=== PATIENT | female | born 1945 | race Caucasian/White ===

== ENCOUNTER 2023-06-04 12:13 | Outpatient (AMB) | payer MEDICARE, SELFPAY ==
--- NOTE | 2023-06-04 12:32 | MHC.OFFVIS ---
Intake Vital Signs 06/04/23 12:33 Height 5 ft 9 in Weight 148 lb 12.992 oz BMI 22.0 BP 122/90 H Blood Pressure Location Rt brachial Position Sitting Pulse 85 Pulse Source Pulse Oximeter Temp 97.5 F Temp Source Skin Pulse Oximetry (%) 95 Oxygen Delivery Method Room Air Intake Visit Reasons: SS Intake Note: New patient, externally referred, presents to office today for Sjogren's Formerly seeing Dr. Kearney, and Dr. Hui. Bog Cutter Required: No Accompanied by: Self / Same As Patient Allergies gluten Allergy (Unknown, Verified 06/04/23 12:36) Inflammation wheat Allergy (Unknown, Verified 06/04/23 12:36) Inflammation sulfa antibiotics Allergy (Severe, Uncoded 06/04/23 12:36) Hives eggs Allergy (Unknown, Uncoded 06/04/23 12:36) Inflammation onions Allergy (Unknown, Uncoded 06/04/23 12:36) Unknown peaches Allergy (Unknown, Uncoded 06/04/23 12:36) Unknown pears Allergy (Unknown, Uncoded 06/04/23 12:36) Unknown HPI HPI Comments History of Present Illness Details Ms. 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 She is coming from [place], [place]. She has Sjgogren's (over 20 yrs) and is on Hyroxuchloroquine 300mg QD(16years). She reports she is doing well and is managing the dry eyes with drops. She visits the dentist regularly the quantity of 5 different leg so with whatever is there right I refill because it has 175. She experiences and multiple joint pain when she is off the HCQ for about 1 week. The remaining medications on her medlist are cyanocobalamin and sertraline. 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 Patient endorses Raynaud's, denies calcinosis and sclerodactyly. dry eyes, dry mouth - She has used pilocarpine in the past History of Crohn's --follows with opthalmology --has need dental work [facility] Medical History (Updated 06/17/23 @ 17:06 by Lily Padron, RICK-ESTEFANIA) Raynaud's syndrome Long-term use of hydroxychloroquine Benign essential tremor Hypovitaminosis Sjogrens syndrome Osteoarthritis Esophageal reflux Crohn's disease Benign paroxysmal positional vertigo Meeks esophagus Surgical History Hx of colonoscopy H/O mammogram Social History Household Members: None Alcohol intake: current Alcohol intake frequency: holidays/special occasions only Alcohol type: wine Patient Tobacco Use Status: Former Tobacco user Substance Use Type: Marijuana Female Reproductive History Menstrual Ab spontaneous: 1 Review of Systems Const All systems reviewed & are unremarkable except as noted in HPI and below Physical Exam Vital Signs: Last Vital Signs Temp 97.5 F 06/04/23 12:33 Pulse 85 06/04/23 12:33 BP 122/90 H 06/04/23 12:33 Pulse Ox 95 06/04/23 12:33 Oxygen Delivery Method Room Air 06/04/23 12:33 BMI result Body Mass Index 22.0 Vital signs reviewed. B/P 122/90 WNR for age - patient asymptomatic for cardiovascular concerns. Constitutional: Non-toxic appearing. No acute distress. Well-developed and well-nourished. HEENT: Normocephalic and atraumatic. External auditory canals without erythema or edema bilaterally. Dry oral mucosa. No pharyngeal erythema or exudates. Skin: Warm and dry. No rashes or lesions noted. no bjective sign of Raynaud's, tanlengiactaisis or calcinosis. Neck: Full and painless range of motion. No cervical lymphadenopathy. Cardio: Regular rate and rhythm. No murmurs, gallops, or rubs. No lower extremity edema. No JVD. Pulmonary: No respiratory distress. No accessory muscle usage. Gastrointestinal: Soft, nontender, and nondistended in all 4 quadrants. Normoactive bowel sounds in all 4 quadrants. Genitourinary: No CVA tenderness. Musculoskeletal: Normal range of motion in joints throughout the body. No deformity or other signs of injury. Neuro: Alert and oriented x4. Cranial nerves 2-12 grossly intact. No focal deficits appreciated. 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 Farnsworthr 77-year-old female with Sjogren's for over 15 years. We will continue hydroxychloroquine 300 mg per day. We will obtain Rheum panel for baseline. She will continue to follow- with eye MD and have them send us reports. Patient is aware of the precautions for Raynaud's. I spent 30 minutes reviewing history, evaluating patient and documenting. F/u 6 months Orders: Orders ANCA Vasculitides 06/04/23 M35.00 - Sjogren syndrome, unspecified, K22.70 - Meeks's esophagus without dysplasia Anti DNA DS Antibody 06/04/23 M35.00 - Sjogren syndrome, unspecified, K22.70 - Meeks's esophagus without dysplasia Anti Extractable Nuclear Ag 06/04/23 M35.00 - Sjogren syndrome, unspecified, K22.70 - Meeks's esophagus without dysplasia Complement C4 06/04/23 M35.00 - Sjogren syndrome, unspecified, K22.70 - Meeks's esophagus without dysplasia Immunoglobulins,IgG IgA IgM 06/04/23 M35.00 - Sjogren syndrome, unspecified, K22.70 - Meeks's esophagus without dysplasia Protein Creatinine Ratio, Ur 06/04/23 M35.00 - Sjogren syndrome, unspecified, K22.70 - Meeks's esophagus without dysplasia T Spot TB 06/04/23 M35.00 - Sjogren syndrome, unspecified, K22.70 - Meeks's esophagus without dysplasia Vitamin B12 06/04/23 E56.9 - Vitamin deficiency, unspecified, G25.0 - Essential tremor Erythrocyte Sedimentation Rate 06/04/23 M35.00 - Sjogren syndrome, unspecified, K22.70 - Meeks's esophagus without dysplasia MCKAYLA Reflex Titer and Pattern 06/04/23 M35.00 - Sjogren syndrome, unspecified, K22.70 - Meeks's esophagus without dysplasia Anti-Centromere B Antibodies 06/04/23 M35.00 - Sjogren syndrome, unspecified, K22.70 - Meeks's esophagus without dysplasia Complement C3 06/04/23 M35.00 - Sjogren syndrome, unspecified, K22.70 - Meeks's esophagus without dysplasia Complete Blood Count Auto Diff 06/04/23 M35.00 - Sjogren syndrome, unspecified, K22.70 - Meeks's esophagus without dysplasia Comprehensive Met. Panel 06/04/23 M3.00 - Sjogren syndrome, unspecified, K22.70 - Meeks's esophagus without dysplasia C Reactive Protein 06/04/23 M35.00 - Sjogren syndrome, unspecified, K22.70 - Meeks's esophagus without dysplasia Immunofixation Pnl, Serum 06/04/23 M35.00 - Sjogren syndrome, unspecified, K22.70 - Meeks's esophagus without dysplasia Sjogren's Antibodies 06/04/23 M35.00 - Sjogren syndrome, unspecified, K22.70 - Meeks's esophagus without dysplasia UA w Microscopic 06/04/235. - Sjogren syndrome, unspecified, K22.70 - Meeks's esophagus without dysplasia Protein Electrophoresis, Serum 06/04/235.00 - Sjogren syndrome, unspecified, K22.70 - Meeks's esophagus without dysplasia Medications: New hydroxychloroquine 300 mg (1.5 x 200 mg) PO DAILY 105 tabs 3RF 5.00 - Sjogren syndrome, unspecified Coding Level of Care Code New Pt Level 3 (12083) Diagnoses Sjogren's syndrome with keratoconjunctivitis sicca M35.01 Sjogren organ or system involvement: keratoconjunctivitis Meeks's esophagus without dysplasia K22.70 Meeks's esophagus type: without dysplasia Long-term use of hydroxychloroquine Z79.899 Raynaud's disease without gangrene I73.00 Raynaud?s-associated gangrene presence: without gangrene
[2023-06-04 12:33] VITALS: BP 122/90; PULSE 85; TEMP 36.4; O2SAT 95; BMI 22.0
== END 2023-06-04 13:23 | disposition home or self-care (01) ==
PROVIDERS: PCP Student in an Organized Health Care Education/Training Program; Visit Provider Nurse Practitioner Family
DX: M35.01 Sjogren syndrome with keratoconjunctivitis (principal); K22.70 Barrett's esophagus without dysplasia; Z79.899 Other long term (current) drug therapy; I73.00 Raynaud's syndrome without gangrene
CPT/HCPCS: 99203

== ENCOUNTER → 2023-06-04 12:13 | Outpatient (BNVA) | payer MEDICARE, SELFPAY | PROVIDERS: PCP Student in an Organized Health Care Education/Training Program; Visit Provider Nurse Practitioner Family | DX: M35.01 Sjogren syndrome with keratoconjunctivitis (principal); M54.50 Low back pain, unspecified; M25.569 Pain in unspecified knee; K22.70 Barrett's esophagus without dysplasia; I73.00 Raynaud's syndrome without gangrene; Z79.899 Other long term (current) drug therapy | CPT/HCPCS: 99202 ==

== ENCOUNTER 2024-06-01 12:24 | Outpatient (AMB) | payer MEDICARE, SELFPAY ==
[2024-06-01 12:31] VITALS: BP 134/78; PULSE 63; O2SAT 98; BMI 21.7
--- NOTE | 2024-06-01 12:31 | MHC.OFFVIS ---
Vital Signs 06/01/24 12:31 Height 5 ft 9 in Weight 147 lb BMI 21.7 BP 134/78 Blood Pressure Location Lt brachial Position Sitting Pulse 63 Pulse Source Pulse Oximeter Pulse Oximetry (%) 98 Oxygen Delivery Method Room Air Intake Visit Reasons: Sjogren's and Raynaud's Intake Note: Patient presents for follow up on Sjorgen's and Raynaud's. She was last seen in the office on 06/04/23 by Lily Padron. Allergies gluten Allergy (Unknown, Verified 06/01/24 12:39) Inflammation wheat Allergy (Unknown, Verified 06/01/24 12:39) Inflammation sulfa antibiotics Allergy (Severe, Uncoded 06/01/24 12:39) Hives eggs Allergy (Unknown, Uncoded 06/01/24 12:39) Inflammation onions Allergy (Unknown, Uncoded 06/01/24 12:39) Unknown peaches Allergy (Unknown, Uncoded 06/01/24 12:39) Unknown pears Allergy (Unknown, Uncoded 06/01/24 12:39) Unknown Medication List - Last Reconciled 06/01/24 by Carrie Reyes MD hydroxychloroquine 300 mg (1.5 x 200 mg) PO DAILY mecobalamin (vitamin B12) mcg PO sertraline 25 mg PO DAILY HPI Comments Details: Patient is a 78-year-old female with benign essential tremor, benign paroxysmal positional vertigo, Crohn's disease, GERD complicated by Meeks's esophagus and Sjogren's syndrome here today for follow up Interval History: Patient last seen 06/04/2023 with Lily Padron. At that time she was establishing care in this practice after her previous deliverer food retired. She had no new complaints at that time and she remain on her Plaquenil Since that visit she followed up for her annual eye appointment 04/2024 and was told that she had retina changes and was referred to retinal specialist for further evaluation. Patient states that about a few months ago she notices an increased amount of skin. She proceeded to scrub her leg but the subsequently had inflammation with swelling and pain to the bilateral calves for about a week and now they remain sensitive Otherwise joints have been good on the plaquenil Rheumatologic History: Initial evaluation by Lily Padron: Ms. 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 She is coming from [place], [place]. She has Sjgogren's (over 20 yrs) and is on Hyroxuchloroquine 300mg QD(16years). She reports she is doing well and is managing the dry eyes with drops. She visits the dentist regularly the quantity of 5 different leg so with whatever is there right I refill because it has 175. She experiences and multiple joint pain when she is off the HCQ for about 1 week. The remaining medications on her medlist are cyanocobalamin and sertraline. 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 Patient endorses Raynaud's, denies calcinosis and sclerodactyly. dry eyes, dry mouth - She has used pilocarpine in the past History of Crohn's --follows with opthalmology --has need dental work Current Rheumatology Medication(s): Plaquenil 300 mg daily [facility] Medical History (Updated 06/17/23 @ 17:06 [facility] Raynaud's syndrome Long-term use of hydroxychloroquine Benign essential tremor Hypovitaminosis Sjogrens syndrome Osteoarthritis Esophageal reflux Crohn's disease Benign paroxysmal positional vertigo Meeks esophagus Surgical History Hx of colonoscopy H/O mammogram Social History Household Members: None Alcohol intake: current Alcohol intake frequency: holidays/special occasions only Alcohol type: wine Patient Tobacco Use Status: Former Tobacco user Substance Use Type: Marijuana Review of Systems Const Details: Review of Systems Constitutional: Denies fever, chills, weight loss ENT: Denies vision changes, eye pain or eye redness, dental caries, dry mouth GI: Denies nausea, vomiting, diarrhea, abdominal pain, change in BM Pulm: Denies SOB, AJCKSON, hemoptysis, wheezing Cards: Denies chest pain, palpitations Skin: Denies Raynaud's, rash, nail changes, photosensitivity, RN TRANSFER: Denies headaches, weakness, paresthesias, recurrent falls MSK: as per HPI All other systems reviewed and are unremarkable except noted above Physical Exam Vital Signs: Last Vital Signs Pulse 63 06/01/24 12:31 BP 134/78 06/01/24 12:31 Pulse Ox 98 06/01/24 12:31 Oxygen Delivery Method Room Air 06/01/24 12:31 BMI result Body Mass Index 21.7 Vital signs reviewed Physical Examination CONSTITUITIONAL Patient alert and cooperative. Well appearing and in no apparent painful distress HEENT Conjunctiva and sclera clear. ?Pupils equal round and reactive to light. ?No lymphadenopathy. ? CHEST/RESPIRATORY SYSTEM Normal respiratory effort and able to speak in complete sentences. ?Clear to auscultation bilaterally. ?No crackles, rales, rhonchi, wheezes heard. CARDIAC SYSTEM Regular rate and rhythm. ?S1 and S2 heard no murmurs. ?Radial pulses intact bilaterally MSK Hands: ?Good frickertron checker strength bilaterally. No deformities noted. ?No synovitis noted to the MCPs, PIPs or DIPs. ?No tenderness to palpation of these joints. [place] nodes and squaring of the 1st CMC Wrists: ?Full range of motion at the wrists without pain. ?No tenderness to palpation or synovitis noted to the wrists. Elbows: Full range of motion without pain. No tenderness, weakness, swelling, increased warmth or erythema. Shoulders: Full range of motion without pain. No tenderness, weakness, swelling, increased warmth or erythema. Hips: Full range of motion without pain. Hip bursa: No tenderness to palpation Knees: ?Full range of motion. ?No tenderness, swelling, increased warmth or erythema.?No effusion or crepitations Ankles: Full range of motion. ?No tenderness, swelling, increased warmth or erythema.? Feet: ?Negative squeeze test. ?No tenderness to palpation or swelling of the MTPs. Tender points:?No tenderness to palpation of the bilateral trapezius, supraspinatus, greater trochanters, anterior costochondral junctions, bilateral gluteal areas, bilateral suboccipital muscle insertions SKIN Xerosis cutis noted to bilateral lower legs Results Reviewed Results Reviewed: Labs from 06/2023 reviewed Creatinine 0.67 AST/ALT SPEP nor abnormal protein bands detected Immunofixation normal pattern. No monoclonal proteins detected. Normal immunoglobulins a, G and M Urine protein creatinine ratio 0.143 T spot negative ESR 9 White blood cell count 3.3 Hemoglobin 12.3 Platelets 152 Absolute lymphocytes low C3 107 C4 17 C-reactive protein 0.4 SSA 6.9 (positive) ONCOLOGY RADIATION PHYSICIAN 1.6 (positive) MCKAYLA 1: 1280 DsDNA 1 Anticentromere antibody negative Assessment & Plan Assessment & Plan (1) Sjogrens syndrome: Code(s): M35.00 - Sjogren syndrome, unspecified Category: Medical Qualifiers: Sjogren organ or system involvement: keratoconjunctivitis Qualified Code(s): M35.01 - Sjogren syndrome with keratoconjunctivitis Plan: #Sjogren's syndrome Patient is a 78-year-old female with Sjogren's syndrome complicated by inflammatory arthritis here today for follow up. No other signs or symptoms concerning for extraglandular Sjogren's. Continue Plaquenil however we will reduce the dose given her new findings of retinal changes. 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 Category: Medical Plan: #Long-term Use of Hydroxychloroquine Discussed with patient the risks and benefits of hydroxychloroquine in managing the rheumatic condition Benefits include: - Reduced pain, reduce mortality, maintenance of remission and reduction of flares Risks include: - GI upset, skin hyperpigmentation, retinal toxicity (especially after more than 5 years of use), myopathy Advised yearly ophthalmology visits Plan I spent 42 minutes reviewing the record and labs, taking a history, examining the patient, discussing the treatment plan, ordering diagnostic work up, answering all the patient's questions and documenting in the medical record Orders: Orders Complement C3 Today M35. - Sjogren syndrome with keratoconjunctivitis Complete Blood Count Auto Diff Today M35. - Sjogren syndrome with keratoconjunctivitis Immunofixation Pnl, Serum Today M35. - Sjogren syndrome with keratoconjunctivitis Protein Electrophoresis, Serum Today M35.01 - Sjogren syndrome with keratoconjunctivitis Complement C4 Today - Sjogren syndrome with keratoconjunctivitis Comprehensive Met. Panel Today - Sjogren syndrome with keratoconjunctivitis C Reactive Protein Today - Sjogren syndrome with keratoconjunctivitis Erythrocyte Sedimentation Rate Today - Sjogren syndrome with keratoconjunctivitis Protein Creatinine Ratio, Ur Today - Sjogren syndrome with keratoconjunctivitis UA w Microscopic Today - Sjogren syndrome with keratoconjunctivitis Rheumatoid Factor Today - Sjogren syndrome with keratoconjunctivitis Immunoglobulins,IgG IgA IgM Today - Sjogren syndrome with keratoconjunctivitis Medications: Changed From hydroxychloroquine 300 mg (1.5 x 200 mg) PO DAILY 105 tabs 3RF M35.00 - Sjogren syndrome, unspecified To hydroxychloroquine 200 mg PO DAILY 90 tabs 4RF M35.00 - Sjogren syndrome, unspecified Coding Level of Care Code Est Pt Level 5 (79835) Complex EM visit Add On G2211 Diagnoses Sjogren's syndrome with keratoconjunctivitis sicca Sjogren organ or system involvement: keratoconjunctivitis Xerosis cutis L85.3 Long-term use of hydroxychloroquine Z79.899
== END 2024-06-01 13:27 | disposition home or self-care (01) ==
LOC: HO.RHE 12:25
PROVIDERS: PCP Student in an Organized Health Care Education/Training Program; Visit Provider Student in an Organized Health Care Education/Training Program
DX: M35.01 Sjogren syndrome with keratoconjunctivitis (principal); L85.3 Xerosis cutis; Z79.899 Other long term (current) drug therapy
CPT/HCPCS: 99215; G2211

== ENCOUNTER → 2024-06-01 12:24 | Outpatient (BNVA) | payer OTHER, SELFPAY | PROVIDERS: PCP Student in an Organized Health Care Education/Training Program; Visit Provider Student in an Organized Health Care Education/Training Program | DX: M35.01 Sjogren syndrome with keratoconjunctivitis (principal); L85.3 Xerosis cutis; Z79.899 Other long term (current) drug therapy | CPT/HCPCS: 99212 ==

== ENCOUNTER 2024-12-01 14:12 | Outpatient (AMB) | payer OTHER, SELFPAY ==
--- NOTE | 2024-12-01 14:37 | MHC.OFFVIS ---
Vital Signs 12/01/24 14:43 Height 5 ft 9 in Weight 155 lb 3.287 oz BMI 22.9 BP 142/102 H Blood Pressure Location Lt brachial Position Sitting Pulse 68 Pulse Source Pulse Oximeter Pulse Oximetry (%) 98 Oxygen Delivery Method Room Air Intake Visit Reasons: Sjogren's and Raynaud's Intake Note: Patient presents for Sjogren's and Raynaud's follow up. Allergies gluten Allergy (Unknown, Verified 12/01/24 14:41) Inflammation wheat Allergy (Unknown, Verified 12/01/24 14:41) Inflammation sulfa antibiotics Allergy (Severe, Uncoded 06/01/24 12:39) Hives eggs Allergy (Unknown, Uncoded 06/01/24 12:39) Inflammation onions Allergy (Unknown, Uncoded 06/01/24 12:39) Unknown peaches Allergy (Unknown, Uncoded 06/01/24 12:39) Unknown pears Allergy (Unknown, Uncoded 06/01/24 12:39) Unknown Medication List - Last Reconciled 12/01/24 by Carrie Reyes MD mecobalamin (vitamin B12) mcg PO HPI Comments Details: Patient is a 79-year-old female with benign essential tremor, benign paroxysmal positional vertigo, Crohn's disease, GERD complicated by Meeks's esophagus and Sjogren's syndrome here today for follow up Interval History: Patient last seen 06/01/2024 with me - On Hydroxychloroquine 200mg bid - Since that visit she followed up for her annual eye appointment 04/2024 and was told that she had retina changes and was referred to retinal specialist for further evaluation. - Patient states that about a few months ago she notices an increased amount of skin. She proceeded to scrub her leg but the subsequently had inflammation with swelling and pain to the bilateral calves for about a week and now they remain sensitive - Otherwise joints have been good on the plaquenil Today - Not on any DMARDs - Stopped plaquenil due to retinal changes - Feels like her hands are more achy - Saw Dr. Ortiz, retinal changes stable - Aquafor helped with xerosis - Asking recs for dry skin on the face Rheumatologic History: Initial evaluation by Lily Padron: Ms. 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 She is coming from [place], [place]. She has Sjgogren's (over 20 yrs) and is on Hyroxuchloroquine 300mg QD(16years). She reports she is doing well and is managing the dry eyes with drops. She visits the dentist regularly the quantity of 5 different leg so with whatever is there right I refill because it has 175. She experiences and multiple joint pain when she is off the HCQ for about 1 week. The remaining medications on her medlist are cyanocobalamin and sertraline. 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 Patient endorses Raynaud's, denies calcinosis and sclerodactyly. dry eyes, dry mouth - She has used pilocarpine in the past History of Crohn's --follows with opthalmology --has need dental work Current Rheumatology Medication(s): [facility] Medical History (Updated 06/17/23 @ 17:[facility] Raynaud's syndrome Long-term use of hydroxychloroquine Benign essential tremor Hypovitaminosis Sjogrens syndrome Osteoarthritis Esophageal reflux Crohn's disease Benign paroxysmal positional vertigo Meeks esophagus Surgical History Hx of colonoscopy H/O mammogram Social History Household Members: None Alcohol intake: current Alcohol intake frequency: holidays/special occasions only Alcohol type: wine Patient Tobacco Use Status: Former Tobacco user Substance Use Type: Marijuana Review of Systems Const All systems reviewed & are unremarkable except as noted in HPI and below Physical Exam Exam Exam: Vital signs reviewed Physical Examination CONSTITUITIONAL Patient alert and cooperative. Well appearing and in no apparent painful distress HEENT Conjunctiva and sclera clear. No lymphadenopathy. Dry mouth MSK Hands Right Hand: Able to make a fist. No swelling or tenderness to palpation of the MCPs, PIPs or DIPs. Left Hand: Able to make a fist. No swelling or tenderness to palpation of the MCPs, PIPs or DIPs. Herbedens and Bouchards nodes noted bilaterally Wrists Right Wrist: Full ROM to flexion and extension. No swelling or TTP Left Wrist: Full ROM to flexion and extension. No swelling or TTP Elbows Right Elbow: Full ROM. No swelling or TTP. No TTP of the medial epicondyle. No TTP of the lateral epicondyle Left Elbow: Full ROM. No swelling or TTP. No TTP of the medial epicondyle. No TTP of the lateral epicondyle Shoulders Right shoulder: Full ROM. No swelling noted. No TTP of the AC joint. No TTP of the subacromial bursa. No TTP of the posterior shoulder Left shoulder: Full ROM. No swelling noted. No TTP of the AC joint. No TTP of the subacromial bursa. No TTP of the posterior shoulder Knees Right knee: Full ROM. No swelling noted. No TTP of the knee joint line. No TTP of pes anserine bursa Left knee: Full ROM. No swelling noted. No TTP of the knee joint line. No TTP of pes anserine bursa. Crepitations felt bilaterally Ankles Right ankle: Good ankle dorsiflexion and plantar flexion. No swelling. No TTP of the ankle joint Left ankle: Good ankle dorsiflexion and plantar flexion. No swelling. No TTP of the ankle joint Feet Right foot: Negative squeeze test Left foot: Negative squeeze test Tender points? No tenderness to palpation of the bilateral trapezius, supraspinatus, anterior costochondral junctions, bilateral suboccipital muscle insertions SKIN No rashes Vital Signs: Last Vital Signs Pulse 68 12/01/24 14:43 BP 142/102 H 12/01/24 14:43 Pulse Ox 98 12/01/24 14:43 Oxygen Delivery Method Room Air 12/01/24 14:43 BMI result Body Mass Index 22.9 Results Reviewed Results Reviewed: 11/01/24 WBC 2.9L Hb 12.7 Plt 194 BUN 7 L Cr 0.67 eGFR 89 AST 17 ALT 14 C3 114 C4 17 RF <10 ESR 15 CRP <1 SPEP Normal TPMT 18.3 Assessment & Plan Assessment & Plan (1) Sjogrens syndrome: Code(s): M35.00 - Sjogren syndrome, unspecified Category: Medical Qualifiers: Sjogren organ or system involvement: keratoconjunctivitis Qualified Code(s): M35.01 - Sjogren syndrome with keratoconjunctivitis Plan: #Sjogren's syndrome Patient is a 79-year-old female with Sjogren's syndrome complicated by inflammatory arthritis here today for follow up. No other signs or symptoms concerning for extraglandular Sjogren's. Plaquenil stopped due to retinal changes. She has noticed some worsening joint symptoms but would like to try CBD gummies and other home remedies prior to getting another medication prescribed Plan - Monitor off DMARDs - RTC 1 year or sooner if needed - Labs before visit: CBC, CMP, ESR, CRP, C3, C4, RF, SPEP (2) Xerosis cutis: Code(s): L85.3 - Xerosis cutis Plan: #Xerosis Cutis Improved with Aquaphor Plan I spent 33 minutes reviewing the record and labs, taking a history, examining the patient, discussing the treatment plan, ordering diagnostic work up, answering all the patient's questions and documenting in the medical record Coding Level of Care Code Est Pt Level 4 (61749) Complex EM visit Add On G2211 Diagnoses Sjogren's syndrome with keratoconjunctivitis sicca M35.01 Sjogren organ or system involvement: keratoconjunctivitis Xerosis cutis L85.3
[2024-12-01 14:43] VITALS: BP 142/102; PULSE 68; O2SAT 98; BMI 22.9
--- OUTSIDE RECORDS SUMMARY | 2024-12-01 15:18 | XMS_ITS | Encounter Summary ---
Author Organization [facility] Address [address] [place] [address] [address] [place] [address] Care Team Providers Care Assembly Machine Set Up Mechanic Name Role Phone Miryam Trevizo Primary Care Provider [phone] Amy Chacon DMD Unavailable [phone] Miryam Trevizo Unavailable [phone] Encounter Details Date Type Department Care Team (Latest Contact Info) Description 04/07/2019 Abstract [facility]VERSION[facility] Dental, Provider, DDS Social History Tobacco Use Types Packs/Day Years Used Date Smoking Tobacco: Never Assessed Comments Unknown Sex and Gender Information Value Date Recorded Sex Assigned at Female 04/13/2022 2:13 PM EST Legal Sex Female 6:20 PM EDT Gender Identity Female 01/02/2022 6:20 PM EDT Sexual Orientation Straight 04/13/2022 2: 58 PM EST documented as of this encounter Plan of Treatment Upcoming Encounters Date Type Department Care Team (Late st Contact Info) Description 12/06/2024 2:20 PM EDT Office Visit [address] [phone] Miryam Trevizo FNP [address] [place] [address] 04/24/2025 10:00 AM EST Office Visit [address] [phone] Miryam Trevizo FNP [address] [place] [address] [phone] documented as of this encounter Visit Diagnoses Not on filedocumented in this encounter Care Teams Assembly Machine Set Up Mechanic Relationship Specialty Start Date End Date Miryam Trevizo FNP PCP - General Family Medicine 01/02/22 Amy Chacon DMD [address] [place] [address] Dentist 01/02/22 Miryam Trevizo FNP Family Medicine 01/02/22 documented as of this encounter
--- OUTSIDE RECORDS SUMMARY | 2024-12-01 15:18 | XMS_ITS | Encounter Summary ---
Author Organization [facility] Address [address] [place] [address] [address] [place] [address] Care Team Providers Care Child Psychiatrist Name Role Phone Miryam Trevizo Primary Care Provider [phone] Amy Chacon DMD Unavailable [phone] Miryam Trevizo Unavailable [phone] Encounter Details Date Type Department Care Team (Latest Contact Info) Description 06/27/2018 Abstract [facility] CONVERSION[facility] Dental, Provider, DDS Social [...] Description 12/06/2024 2:20 PM EDT Office Visit [address] [phone] Miryam Trevizo FNP [address] [place] [address] 04/24/2025 10:00 AM EST Office Visit [address] [phone] Miryam Trevizo FNP [address] [place] [address] [phone] documented as of this encounter Visit Diagnoses Not on filedocumented in this encounter Care Teams Child Psychiatrist Relationship Specialty Start Date End Date Miryam Trevizo FNP PCP - General Family Medicine 01/02/22 Amy Chacon DMD [address] [place] [address] Dentist 01/02/22 Miryam Trevizo FNP Family Medicine 01/02/22 documented as of this encounter
--- OUTSIDE RECORDS SUMMARY | 2024-12-01 15:18 | XMS_ITS | Encounter Summary ---
Author Organization [facility] Address [address] [facility] 7[address] [place] [address] Care Team Providers Care Auctioneer Automobile Name Role Phone Miryam Trevizo Primary Care Provider [phone] Amy Chacon DMD Unavailable [phone] Miryam Trevizo Unavailable [phone] Encounter Details Date Type Department Care Team ([facility] st Contact Info) Description 09/28/[address] [facility] Information Management [address] [place], [place] [phone] Miryam Trevizo FNP [address] [place] [address] Social History Tobacco Use Types Packs/Day Years Used Date Smoking Tobacco: Never Smokeless Tobacco: Never Alcohol Answer Date Recorded How often do you have a drink containing alcohol ? 1 04/27/2023 How many drinks containing a lcohol do you have on a typical day when you are drinking? 0 04/27/2023 How often do you have six or more drinks on one occasion? 0 04/27/2023 Depression Answer Date Recorded Patient Health Questionnaire-9 Score 6 05/26/2023 Patient Health Questionnaire-9 Score 6 05/26/2023 Last PHQ-9: Questionnaire Data Not on file 0 05/26/2023 Housing Stability Answer Date Recorded What is your housing situation today? I have [address] 12/17/[address] you li ve. Do you have problems with any of the following? Oven or stove not working 12/17/2022 Food Insecurity Answer Date Recorded Within the past 12 months, y ou worried that your food would run out before you got money to buy more: Never True 01/06/2023 Within the past 12 months,th e food you bought just didn't last and you didn't have enough money to get more: Never True 03/2022 Transportation Answer Date Recorded In the past 12 months, has l ack of transportation kept you from medical appts, meetings, work or from getting things needed for daily living? No 01/06/2023 Intimate Partner Violence Answer Date R ecorded Within the last year, have y ou been afraid of your partner or ex-partner? 2 04/27/2023 Within the last year, have y ou been humiliated or emotionally abused in other ways by your partner or ex-partner? 2 Within the last year, have y ou been kicked, hit, slapped, or otherwise physically hurt by your partner or ex-partner? 2 04/27/2023 Within the last year, have y ou been raped or forced to have any kind of sexual activity by your partner or ex-partner? 2 04/27/2023 Utilities Answer Date Recorded In the past 12 months, has t he [employer], [employer], oil or water company threatened to shut off services in your home? No 01/06/2023 Depression Answer Date Recorded Patient Health Questionnaire-2 Score 0 05/26/2023 Comments No Sex and Gender Information Value Date Recorded Sex Assigned at Female 04/13/2022 2:13 PM EST Legal Sex Female 6:20 PM EDT Gender Identity Female 01/02/2022 6:20 PM EDT Sexual Orientation Straight 04/13/2022 2: 58 PM EST documented as of this encounter Plan of Treatment Upcoming Encounters Date Type Department Care Team (Late st Contact Info) Description 12/06/2024 2:20 PM EDT Office Visit [address] [phone] Miryam Trevizo FNP [address] [place] [address] 04/24/2025 10:00 AM EST Office Visit [address] [phone] Miryam Trevizo FNP [address] [place] [address] documented as of this encounter Procedures Procedure Name Priority Date/Time Associated Diagnosis Comments ECG 12-LEAD Routine 01/27/2023 10:39 AM EST documented in this encounter Results * ECG 12 lead (01/27/2023 10:39 AM EST) Miryam CABRERA ECG ORDERABLES Final Result documented in this encounter Visit Diagnoses Not on filedocumented in this encounter Additional Health Concerns Assessment Noted Time PHQ-9 Depression Total Score: 6 05/26/19 24 9:47 AM EDT documented as of this encounter Care Teams Auctioneer Automobile Relationship Specialty Start Date End Date Miryam Trevizo FNP PCP - General Family Medicine 01/02/22 Amy Chacon DMD [address] [place] [address] Dentist 01/02/22 Miryam Trevizo FNP Family Medicine 01/02/22 documented as of this encounter
--- OUTSIDE RECORDS SUMMARY | 2024-12-01 15:18 | XMS_ITS | Encounter Summary ---
Author Organization [employer] [facility] Address [address] [facility] 7t [place] [address] Care Team Providers Care Adult School Teacher Name Role Phone Joseline Miryam CABRERA Primary Care Provider [phone] Amy Chacon DMD Unavailable [phone] Miryam Trevizo Unavailable [phone] Encounter Details Date Type Department Care Team (Latest Contact Info) Description 11/29/2024 Travel Social History Tobacco Use Types Packs/Day Years [...] Answer Date Recorded Patient Health Questionnaire-9 Score 1 04/21/2024 Patient Health Questionnaire-9 Score 1 04/21/2024 Last PHQ-9: Questionnaire Data Not on file 0 04/21/2024 Housing Stability Answer Date Recorded What is your housing situation today? I have [address] 04/21/[address] you li ve. Do you have problems with any of the following? None of the above 04/21/2024 Food Insecurity Answer Date Recorded Within the past 12 months, y ou worried that your food would run out before you got money to buy more: Never True 04/21/2024 Within the past 12 months,th e food you bought just didn't last and you didn't have enough money to get more: Never True Transportation Answer Date Recorded In the past 12 months, has l ack of transportation kept you from medical appts, meetings, work or from getting things needed for daily living? No 04/21/2024 Intimate Partner Violence Answer Date R ecorded [...] the past 12 months, has t he electric, gas, oil or water company threatened to shut off services in your home? No 04/21/2024 Depression Answer Date Recorded Patient Health Questionnaire-2 Score 0 04/21/2024 Internet Access Answer Date Recorded Internet Access Q1 Yes 04/21/2024 Internet Access Q2 Not on file 04/21/2024 Comments No Sex and Gender Information Value [...] Description 12/06/2024 2:20 PM EDT Office Visit [address] [phone] Miryam Trevizo FNP [address] [place] [address] 04/24/2025 10:00 AM EST Office Visit [address] [phone] Miryam Trevizo FNP [address] [place] [address] documented as of this encounter Visit Diagnoses Not on filedocumented in this encounter Additional Health Concerns Assessment Noted Time PHQ-9 Depression Total Score: 1 04/21/19 25 2:14 PM EST documented as of this encounter Care Teams Adult School Teacher Relationship Specialty Start Date End Date Miryam Trevizo FNP PCP - General Family Medicine 01/02/22 Amy Chacon DMD [address] [place] [address] Dentist 01/02/22 Miryam Trevizo FNP Family Medicine 01/02/22 documented as of this encounter
--- OUTSIDE RECORDS SUMMARY | 2024-12-01 15:18 | XMS_ITS | Clinical Summary ---
Author Organization [employer] [facility] Address [address] [facility] 7t [place] [address] Care Team Providers Care Explosive Operator Bomb Name Role Phone Miryam Trevizo Primary Care Provider [phone] Amy Chacon DMD Unavailable Miryam Trevizo Unavailable [phone] Allergies Active Allergy Reactions Criticality Noted Date Comments Cheese Diarrhea 01/27/2023 Egg-Derived Products 12/24/2014 Other reaction(s): Inflammation Gluten Meal 12/24/2014 Other reaction(s): Inflammation Onion 12/24/2014 Prunus Persica 12/24/2014 Pear 12/24/2014 Sulfa Antibiotics Rash Low 12/31/2011 Other reaction(s): Skin Rashes, Hives Wheat 12/24/2014 Other reaction(s): inflammation Medications sertraline (Zoloft) 25 MG tabletIndicatio ns:Mixed anxiety depressive disorder Take 1 tablet (25 mg) by mouth Once per day. 90 tablet 3 5 Active Additional Information Patient not taking.Reported on 11/01/2024 Active Problems Problem Noted Date Diagnosed Date Cyst of ovary 04/21/2024 B12 deficiency 04/21/2024 Mixed anxiety depressive disorder 04/27/2023 Assessment & Plan (04/27/2023 3:10 PM EST): 77F with mixed anxiety depressive disorder. PHQ9 of 8; GAD7 of 14. Shared decision to initiate SSRI therapy - reviewed risks/ benefits and s/e profile. Script sent for sertraline 25mg daily. F/u again in 1 month on effect/ tolerability and possible dose titration to 50mg. History of 07/16/2022 Benign paroxysmal positional vertigo 04/01/2020 Overview (07/16/2022): Note: Unchanged Osteoarthritis 03/24/2018 Overview (07/16/2022): Note: Unchanged Herpes simplex type 1 infection 06/19/2014 Crohn's disease 02/22/2014 Sjogren's syndrome 02/22/2014 Eosinophilic esophagitis 03/07/2012 Overview (07/16/2022): Note: 02/04/[address] Dey. Esophageal reflux 03/07/2012 Overview (07/16/2022): Note: 02/04/12 egd Vitamin D deficiency 11/09/2008 Resolved Problems Problem Noted Date Diagnosed Date Resolved Date Vegan's anemia 10/17/2021 04/21/2024 Encounters Date Type Department Care Team Description 11/29/2024 Travel 11/01/2024 12:40 PM EDT Office Visit [address] [phone] Nathalie Page FNP Elevated blood pressure reading (Primary Dx); Sjogren's syndrome, with unspecified organ involvement (CMS/HCC); Mixed anxiety depressive disorder; Change in facial mole 10/11/2024 11:20 AM EDT Clinical Support [address] [phone] Lala Joyce LPN Benign paroxysmal positional vertigo of right ear 10/04/2024 1:20 PM EDT Office Visit [address] [phone] Mary Beth Escobedo PA-C Elevated blood pressure reading (Primary Dx) 10/04/2024 Travel from Last 3 Months Immunizations Immunization Administration Dates Next Due Moderna Covid-19 Vaccine 12+ 05/29/2020,05/01/19 21 Pfizer Covid-19 Vaccine 12+ Bivalent 04/13/2022 Tdap 05/27/2022,06/15/2016 Social History Tobacco Use Types Packs/Day Years Used Date Smoking Tobacco: Never Smokeless Tobacco: Never Tobacco Cessation:Counseling Given: Not Answered Alcohol Answer Date Recorded How often do [...] is your housing situation today? I have [address] 04/21/[address] you [...] Orientation Straight 04/13/2022 2: 58 PM EST Last Filed Vital Signs Vital Sign Reading Time Taken Comments Blood Pressure 133/79 11/01/2024 12:47 PM EDT Pulse 68 11/01/2024 12:47 PM EDT Temperature 36.3 C (97.4 F) 08/29/2024 10:19 AM EDT Respiratory Rate - - Oxygen Saturation 96% 11/01/2024 12:47 PM EDT Inhaled Oxygen Concentration - - Weight 72 kg (158 lb 11.2 oz) 10/04/2024 1:28 PM EDT Height 174 cm (5' 8.5 ) 08/29/2024 10:19 AM EDT Body Mass Index 23.78 08/29/2024 10:19 AM EDT Plan of Treatment Upcoming Encounters Date Type Department Care Team (Late st Contact Info) Description 12/06/2024 2:20 PM EDT Office Visit [address] [phone] Miryam Trevizo FNP [address] [place] [address] 04/24/2025 10:00 AM EST Office Visit [address] [phone] Miryam Trevizo FNP [address] [place] [address] Health Maintenance Due Date Last Done Comments CT Colonography 1946 FIT DNA/Cologuard 1945 FIT 1945 FOBT 1945 Sigmoidoscopy 1945 Pneumococcal Vaccine: 50+ Years (1 of 1 - PCV) 1996 Zoster Vaccines (1 of 2) 1996 RSV Patients and Patients Aged 60 years or older (1 - 1-dose 75+ series) 2021 COVID-19 Vaccine ( season) 2024 04/13/2022, 03/06/2021, 05/29/2020, Additional history exists Influenza Vaccine (#1) 2024 Alcohol/Substance Use Screening 04/21/2025 04/21/2024 Depression Screening 04/21/2025 04/21/2024, 04/21/19 SDOH Screening 04/21/2025 04/21/2024 Tobacco Screening 11/01/2025 11/01/2024 Colonoscopy 06/08/2026 06/08/2016 Colorectal Cancer Screening 06/08/2026 DTaP/Tdap/Td Vaccines (3 - Td or Tdap) 05/27/2032 05/27/2022, 06/15/2016 Hepatitis C Screening Completed 10/17/2021 HIB Vaccines Aged Out No longer eligi ble based on patient's age to complete this topic HPV Vaccines Aged Out No longer eligi ble based on patient's age to complete this topic Hepatitis A Vaccines Aged Out No long er eligible based on patient's age to complete this topic Hepatitis B Vaccines Aged Out No long er eligible based on patient's age to complete this topic IPV Vaccines Aged Out No longer eligi ble based on patient's age to complete this topic Meningococcal B Vaccine Aged Out No l onger eligible based on patient's age to complete this topic Meningococcal Vaccine Aged Out No ara kari eligible based on patient's age to complete this topic RSV under 20 months Aged Out No longe r eligible based on patient's age to complete this topic Rotavirus Vaccines Aged Out No longer eligible based on patient's age to complete this topic Procedures Procedure Name Priority Date/Time Associated Diagnosis Comments HM HEPATITIS C ANTIBODY Routine 10/17/2021 COLONOSCOPY Routine 06/08/2016 12:00 AM EDT from Last 3 Months or Most Recently Relevant to Health Maintenance Results * HM Hepatitis C Antibody (10/17/2021) Hepatitis C Antibody Nonreactive Blood us Historical Provider HEALTH MAINTENANCE Final Result * Colonoscopy (06/08/2016 12:00 AM EDT) Anatomical Region Laterality Modality Endoscopy 06/08/2016 Narrative 06/08/2016 12:00 AM EDT Refer to the Notes tab for result details Legacy Procedure: Colonoscopy Procedure Note Provider, Juan, - 05/30/2022 Refer to the Notes tab for result details Legacy Procedure: Colonoscopy us Historical Provider ENDOSCOPY PROCEDURE ORDER CARRIE Final Result from Last 3 Months or Most Recently Relevant to Health Maintenance Insurance [employer] [address] [employer] [facility] OPT[employer] (HMO D-SNP) [place] [address] Care Teams Explosive Operator Bomb Relationship Specialty Start Date End Date Miryam Trevizo FNP PCP - General Family Medicine 01/02/22 Amy Chacon DMD [address] [place] [phone] Dentist 01/02/22 Miryam Trevizo FNP Family Medicine 01/02/22
== END 2024-12-01 15:24 | disposition home or self-care (01) ==
LOC: HO.RHES 14:12
PROVIDERS: PCP Student in an Organized Health Care Education/Training Program; Visit Provider Student in an Organized Health Care Education/Training Program
DX: M35.01 Sjogren syndrome with keratoconjunctivitis (principal); L85.3 Xerosis cutis
CPT/HCPCS: 99214; G2211

== ENCOUNTER → 2024-12-01 14:12 | Outpatient (BNVA) | payer OTHER, SELFPAY | PROVIDERS: PCP Student in an Organized Health Care Education/Training Program; Visit Provider Student in an Organized Health Care Education/Training Program | DX: M35.01 Sjogren syndrome with keratoconjunctivitis (principal); L85.3 Xerosis cutis | CPT/HCPCS: 99212 ==